=== PATIENT | male | born 1970 | race African-American/Black ===

== ENCOUNTER 2018-02-16 00:43 | Emergency (ER) | payer SELFPAY ==
[2018-02-16] MEDS ORDERED: ONDANSETRON HCL INJ/PF 4 MG/2 ML SDV IV ONE (01:17)
[2018-02-16] MEDS ORDERED: NORMAL SALINE 1000 ML 1,000 ML IV ONE (01:17)
--- NOTE | 2018-02-16 01:17 | ER Document Report ---
ED Flu Like - General Chief Complaint: Nausea/Vomiting Stated Complaint: COLD SYMPTOMS Time Seen by Provider: 02/16/18 00:49 Mode of Arrival: Stretcher Information source: Patient, Relative Notes: She is a 48-year-old male presenting to the emergency department via EMS with his mother complaining of vomiting 2 in the last 24 hours. Patient denies any blood in his vomit. Patient states he has had nausea and vomiting for the last year intermittently. Patient has not seen a doctor for this complaint. Patient denies diarrhea, fever, URI symptoms. patient states last 24 hours he has an increased body aches, lower back pain, headache. Patient denies any trauma or falls. Patient denies any dysuria. Admits to routine marijuana use, smoking cigarettes, EtOH daily. Patient denies any past medical history, medications, has an allergy to seafood. - Related Data Allergies/Adverse Reactions: seafood Allergy (Uncoded 02/16/18 01:28) Past Medical History - General Information source: Patient, Relative - Social History Smoking Status: Current Every Day Smoker Family History: Reviewed & Not Pertinent Review of Systems - Review of Systems Constitutional: See HPI EENT: No symptoms reported Cardiovascular: See HPI Respiratory: See HPI Gastrointestinal: See HPI Genitourinary: See HPI Male Genitourinary: No symptoms reported Musculoskeletal: See HPI Skin: No symptoms reported Hematologic/Lymphatic: No symptoms reported Neurological/Psychological: No symptoms reported Course - Re-evaluation Re-evalutation: Lab results show no sign of leukocytosis. Upon reexam patient states abdominal pain and back pain have resolved. Patient has not vomited since being in the emergency department p.o. challenge will be ordered. Mother in the department requesting medications for patient to go home with due to patient not having insurance. Alcohol cessation discussed with the patient and mother. Due to treatment modalities helping the patient's pain, patient's history, patient's lab work, patient's symptoms most likely due to gastritis. Return precautions given - Laboratory Result Diagrams: 02/16/18 01:50 02/16/18 01:50 Laboratory results interpreted by me: 02/16/18 01:50 Carbon Dioxide 17 L Discharge - Discharge Clinical Impression: Vomiting Qualifiers: Vomiting type: unspecified Vomiting Intractability: unspecified Nausea presence : with nausea Qualified Code(s): R11.2 - Nausea with vomiting, unspecified Gastritis Qualifiers: Gastritis type: unspecified gastritis Chronicity: unspecified Gastritis bleeding: without bleeding Qualified Code(s): K29.70 - Gastritis, unspecified, without bleeding Disposition: HOME, SELF-CARE Instructions: Vomiting ([facility]), Antinausea Medication ([facility]) Additional Instructions: You have been diagnosed with nausea, vomiting, and gastritis. You should refrain from spicy foods, alcohol beverages, peppermint, caffeine. Take medications as prescribed. Return to emergency department should you start vomiting blood, have bloody stools, abdominal pain returns, develop chest pain or shortness of breath. Prescriptions: Famotidine [Pepcid 40 mg Tablet] 40 mg PO BID #60 tablet Ondansetron [Zofran Odt 4 mg Tablet] 1 - 2 tab PO Q4H PRN #15 tab.rapdis PRN Reason: For Nausea/Vomiting Sucralfate [Carafate 1 gm Tablet] 1 gm PO QID #20 tablet Referrals: LOCALMD,NO [NO LOCAL MD] - Follow up as needed
[2018-02-16] MEDS ORDERED: FAMOTIDINE 20 MG TABLET PO ONE (01:22)
[2018-02-16] MEDS ORDERED: SUCRALFATE 1 GM TABLET PO ONE (01:22)
[2018-02-16 02:24] LABS: ALANINE AMINOTRANSFERASE 35 U/L (21-72); ALBUMIN 4.7 g/dL (3.5-5.0); ALKALINE PHOSPHATASE 83 U/L (38-126); ANION GAP 18 (5-19); ASPARTATE AMINO TRANSFERASE 39 U/L (17-59); BILIRUBIN,DIRECT 0.3 mg/dL (0.0-0.4); BILIRUBIN,TOTAL 0.6 mg/dL (0.2-1.3); BLOOD UREA NITROGEN 11 mg/dL (7-20); CALCIUM 9.5 mg/dL (8.4-10.2); CARBON DIOXIDE 17 mmol/L (22-30); CHLORIDE 107 mmol/L (98-107); GLUCOSE 90 mg/dL (75-110); LIPASE 128.9 U/L (23-300); POTASSIUM 4.6 mmol/L (3.6-5.0); SODIUM 142.3 mmol/L (137-145); TOTAL PROTEIN 8.1 g/dL (6.3-8.2)
[2018-02-16 02:37] LABS: ABSOLUTE BASOPHILS # (AUTO) 0.1 10^3/uL (0.0-0.2); ABSOLUTE EOSINOPHILS # (AUTO) 0.2 10^3/uL (0.0-0.6); ABSOLUTE LYMPHOCYTES (AUTO) 2.7 10^3/uL (0.5-4.7); ABSOLUTE MONOCYTES (AUTO) 0.4 10^3/uL (0.1-1.4); ABSOLUTE NEUT (AUTO) 3.3 10^3/uL (1.7-8.2); BASOPHILS % (AUTO) 1.4 % (0-2); EOSINOPHILS % (AUTO) 2.4 % (0-6); HEMOGLOBIN 13.7 g/dL (13.5-17.0); LYMPHOCYTES % (AUTO) 40.9 % (13-45); MEAN CORPUSCULAR HEMOGLOBIN 29.6 pg (27.0-33.4); MEAN CORPUSCULAR HGB CONC 33.4 g/dL (32.0-36.0); MEAN CORPUSCULAR VOLUME 89 fl (80-97); MONOCYTES % (AUTO) 6.2 % (3-13); PLATELET COUNT 232 10^3/uL (150-450); RED BLOOD COUNT 4.63 10^6/uL (4.35-5.55); RED CELL DISTRIBUTION WIDTH 13.5 % (11.5-14.0); SEGMENTED NEUTROPHILS % (AUTO) 49.1 % (42-78); TOTAL CELLS COUNTED % (AUTO) 100 %; WHITE BLOOD COUNT 6.6 10^3/uL (4.0-10.5)
[2018-02-16] MEDS ORDERED: ONDANSETRON ODT 4 MG TAB (6 TAB/ER DISP) PO PRN (03:34)
[2018-02-16 03:35] VITALS: BP 106/69
== END 2018-02-16 03:45 | disposition home or self-care (01) ==
LOC: ER 00:43
DX: K29.70 Gastritis, unspecified, without bleeding (principal); R11.2 Nausea with vomiting, unspecified; M54.5 Low back pain; R51 Headache; F17.210 Nicotine dependence, cigarettes, uncomplicated; Z91.013 Allergy to seafood
CPT/HCPCS: 99284; 96361; 96374; 36415; 83690; 85025; 80053; J2405; J7030

== ENCOUNTER 2018-05-05 09:00 | Emergency (ER) | payer SELFPAY ==
[2018-05-05] MEDS ORDERED: PREDNISONE 20 MG TABLET PO ONE (09:18)
[2018-05-05] MEDS ORDERED: ALBUTEROL SULFATE 0.083% NEB 2.5 MG/3 ML AMPUL NEB ONE ×2 (09:18→11:05)
[2018-05-05] MEDS ORDERED: IPRATROPIUM/ALBUTEROL 0.5-2.5 MG/3 ML AMPUL NEB ONE (09:18)
--- NOTE | 2018-05-05 09:19 | ER Document Report ---
ED Medical Screen (RME) - General Chief Complaint: Shortness Of Breath Stated Complaint: SHORTNESS OF BREATH Time Seen by Provider: 05/05/18 09:16 Notes: 48-year-old male smoker with 3 days shortness of breath got a lot worse last night. Called 911, EMS responded given breathing treatments. He was better and refused transport. He has gotten worse since then. Diffuse wheezes and rhonchi with some retracting. I have greeted and performed a rapid initial assessment of this patient. A comprehensive ED assessment and evaluation of the patient, analysis of test results and completion of the medical decision making process will be conducted by additional ED providers. TRAVEL OUTSIDE OF THE [place] IN LAST 30 DAYS: No - Related Data Allergies/Adverse Reactions: seafood Allergy (Uncoded 02/16/18 01:28) Past Medical History - Social History Chew tobacco use (# tins/day): No Pulmonary Medical History: Reports: Hx Asthma Renal/ Medical History: Denies: Hx Peritoneal Dialysis Physical Exam - Vital signs Vitals: Temp Pulse Resp BP Pulse Ox 99.1 F 100 24 H 178/96 H 95 05/05/18 09:06 05/05/18 09:06 05/05/18 09:06 05/05/18 09:06 05/05/18 09:06 Course - Vital Signs Vital signs: Temp Pulse Resp BP Pulse Ox 99.1 F 100 24 H 178/96 H 95 05/05/18 09:06 05/05/18 09:06 05/05/18 09:06 05/05/18 09:06 05/05/18 09:06
[2018-05-05] MEDS ORDERED: MAGNESIUM SULFATE/D5W 1 GM/100 ML RTUPB IV ONE (09:54)
--- NOTE | 2018-05-05 10:01 | ER Document Report ---
ED General - General Chief Complaint: Shortness Of Breath Stated Complaint: SHORTNESS OF BREATH Time Seen by Provider: 05/05/18 09:16 TRAVEL OUTSIDE OF THE [place] IN LAST 30 DAYS: No - HPI Notes: Patient is a 48-year-old male with a past medical history of asthma who presents to the ED complaining of nasal congestion/discharge, dry nonproductive cough, wheezing over the last 2 days. Patient states that he did call an ambulance yesterday and they gave him nebulizers which improved his symptoms and he refused transport at that time. Patient states that he has continued wheezing so he came to emergency department. He is able to eat and drink without any difficulties. He is urinating normally and having normal bowel movements. Patient states that he has had asthma flareups like this in the past and believes that he may have a cold as well. He has no other concerns or complaints. Denies any headache, fever, sore throat, chest pain, palpitations, syncope, abdominal pain, nausea/vomiting/diarrhea, urinary retention, dysuria, hematuria, or rash. - Related Data Allergies/Adverse Reactions: seafood Allergy (Uncoded 02/16/18 01:28) Past Medical History - Social History Smoking Status: Current Some Day Smoker Chew tobacco use (# tins/day): No Family History: Reviewed & Not Pertinent Patient has suicidal ideation: No Patient has homicidal ideation: No Pulmonary Medical History: Reports: Hx Asthma Renal/ Medical History: Denies: Hx Peritoneal Dialysis Review of Systems - Review of Systems -: Yes All other systems reviewed and negative Physical Exam - Vital signs Vitals: Temp Pulse Resp BP Pulse Ox 99.1 F 100 24 H 178/96 H 95 05/05/18 09:06 05/05/18 09:06 05/05/18 09:06 05/05/18 09:06 05/05/18 09:06 - Notes Notes: PHYSICAL EXAMINATION: GENERAL: Well-appearing, well-nourished and in no acute distress. A&Ox4. Answers questions appropriately. HEAD: Atraumatic, normocephalic. EYES: Pupils equal round and reactive to light, extraocular movements intact, sclera anicteric, conjunctiva are normal. ENT: Nares patent and without discharge. oropharynx clear without exudates. No tonsilar hypertrophy or erythema. Moist mucous membranes. NECK: Normal range of motion, supple without lymphadenopathy LUNGS: wheezing throughout. No obvious retractions, but pt had already received 1 neb tx HEART: Regular rate and rhythm without murmurs, rubs, gallops. ABDOMEN: Soft, nontender, nondistended abdomen. No guarding, no rebound. No masses appreciated. Normal bowel sounds present. No CVA tenderness bilaterally. Musculoskeletal: FROM to passive/active. Strength 5+/5. Verena neg. No asymmetry to LE's. Extremities: No cyanosis, clubbing, or edema b/l. Peripheral pulses 2+. Capillary refill less than 3 seconds. NEUROLOGICAL: Normal speech, normal gait. PSYCH: Normal mood, normal affect. SKIN: Warm, Dry, normal turgor, no rashes or lesions noted. Course - Re-evaluation Re-evalutation: 05/05/18 12:55 Patient is an afebrile, well-hydrated, 48-year-old male who presents to the ED with an acute URI and asthma exacerbation. Vitals are acceptable without any significant tachycardia, tachypnea, or hypoxia. Patient has been monitored on a pulse oximetry at 95% currently on room air with good waveform. Patient is nontoxic-appearing and is tolerating p.o. without difficulty. Patient did receive 2 breathing treatments, prednisone, and magnesium. EKG/Chest x-ray unremarkable. Patient was ambulated on room air and maintained greater than 95% . Patient's lung sounds have greatly improved since arrival. Patient states that he feels much better and is ready to go home. He has reported similar flare-ups in the past of his asthma. No cardiopulmonary medical history otherwise. I did review admission versus discharge with patient and patient would like to be discharged home. Risk/benefit understood. I will give him an inhaler as well as a prescription for prednisone taper. Patient is aware that he may return at any point with worsening symptoms. Recheck with your PCM next week. Return to the ED for any other worsening/concerning symptoms as reviewed. Patient is in agreement. - Vital Signs Vital signs: Temp Pulse Resp BP Pulse Ox 99.1 F 100 15 128/84 H 97 05/05/18 09:06 05/05/18 09:06 05/05/18 12:01 05/05/18 12:00 05/05/18 12:01 Discharge - Discharge Clinical Impression: Acute URI Acute asthma exacerbation Qualifiers: Asthma severity: mild Asthma persistence: intermittent Qualified Code(s): J45.21 - Mild intermittent asthma with (acute) exacerbation Condition: Stable Disposition: HOME, SELF-CARE Instructions: Asthma ([facility]) Additional Instructions: Maintain adequate fluid intake Take meds as directed tylenol/ibuprofen as needed over the counter cold medication as needed for symptoms Inhaler as directed/needed Humidified air may help Wash your hands regularly Wear a mask when coughing F/u: with your PCM in 2-3 days for a recheck Return to the ED with any fever, worsening pain, chest pain, palpitations, syncope, worsening BENITEZ, neck pain/stiffness, shortness of breath, wheezing, drooling, trouble swallowing/breathing, abdominal pain, n/v/d, rash, or worsening/concerning symptoms otherwise. Prescriptions: Prednisone [Deltasone 10 mg Tablet] 10 mg PO DAILY #18 tablet Forms: Elevated Blood Pressure Referrals: [facility] [Provider Group] - Follow up as needed [facility] [Provider Group] - Follow up as needed
[2018-05-05 10:33] LABS: A TYPE INFLUENZA AG NEGATIVE (NEGATIVE); B INFLUENZA AG NEGATIVE (NEGATIVE)
--- NOTE | 2018-05-05 10:40 | RADIOLOGY REPORT (SQ) ---
EXAM DESCRIPTION: CHEST 2 VIEWS COMPLETED DATE/TIME: 05/05/2018 10:29 am REASON FOR STUDY: cough/wheeze COMPARISON: None. EXAM PARAMETERS: NUMBER OF VIEWS: two views TECHNIQUE: Digital Frontal and Lateral radiographic views of the chest acquired. RADIATION DOSE: NA LIMITATIONS: none FINDINGS: LUNGS AND PLEURA: No opacities, masses or pneumothorax. No pleural effusion. MEDIASTINUM AND HILAR STRUCTURES: No masses or contour abnormalities. HEART AND VASCULAR STRUCTURES: Heart normal size. No evidence for failure. BONES: No acute findings. Old rib fracture. HARDWARE: None in the chest. OTHER: No other significant finding. IMPRESSION: NO ACUTE RADIOGRAPHIC FINDING IN THE CHEST. TECHNICAL DOCUMENTATION: JOB ID: [id number] [employer]- All Rights Reserved Reading location - IP/workstation name: [email or web address]
[2018-05-05] MEDS ORDERED: ALBUTEROL SULFATE HFA (90 MCG/PUFF) 8 GM MDI (1 MDI/ER DISP) IH ONE (12:35)
[2018-05-05 14:08] VITALS: BP 158/91
--- NOTE | 2018-05-05 19:16 | EKG REPORT ---
SEVERITY:- ABNORMAL ECG - SINUS RHYTHM LVH WITH SECONDARY REPOLARIZATION ABNORMALITY : Confirmed by: Brittany Vickers MD 05-May-2018 19:15:07
== END 2018-05-05 14:08 | disposition home or self-care (01) ==
LOC: ER 09:00
DX: J06.9 Acute upper respiratory infection, unspecified (principal); J45.21 Mild intermittent asthma with (acute) exacerbation; R06.02 Shortness of breath; R09.81 Nasal congestion; R09.89 Other specified symptoms and signs involving the circulatory and respiratory systems; R05 Cough
CPT/HCPCS: 93005; 94640 ×2; 99285; 96365; 96366; 87804; 71046; 93010; J3475; J7512; J3490; J7620

== ENCOUNTER 2020-02-19 18:04 | Emergency (ER) | payer SELFPAY ==
[2020-02-19 19:20] LABS: ABSOLUTE BASOPHILS # (AUTO) 0.1 10^3/uL (0.0-0.2); ABSOLUTE LYMPHOCYTES (AUTO) 0.8 10^3/uL (0.5-4.7); ABSOLUTE MONOCYTES (AUTO) 0.1 10^3/uL (0.1-1.4); ABSOLUTE NEUT (AUTO) 7.7 10^3/uL (1.7-8.2); BASOPHILS % (AUTO) 1.1 % (0-2); EOSINOPHILS % (AUTO) 0.3 % (0-6); HEMATOCRIT 38.7 % (37.9-51.0); HEMOGLOBIN 13.1 g/dL (13.5-17.0); LYMPHOCYTES % (AUTO) 8.8 % (13-45); MEAN CORPUSCULAR HEMOGLOBIN 29.3 pg (27.0-33.4); MEAN CORPUSCULAR HGB CONC 33.9 g/dL (32.0-36.0); MEAN CORPUSCULAR VOLUME 87 fl (80-97); MONOCYTES % (AUTO) 1.4 % (3-13); PLATELET COUNT 241 10^3/uL (150-450); RED BLOOD COUNT 4.47 10^6/uL (4.35-5.55); RED CELL DISTRIBUTION WIDTH 13.3 % (11.5-14.0); SEGMENTED NEUTROPHILS % (AUTO) 88.4 % (42-78); TOTAL CELLS COUNTED % (AUTO) 100 %; WHITE BLOOD COUNT 8.7 10^3/uL (4.0-10.5)
[2020-02-19 19:25] LABS: ALBUMIN 4.5 g/dL (3.5-5.0); ALKALINE PHOSPHATASE 83 U/L (38-126); ANION GAP 17 (5-19); ASPARTATE AMINO TRANSFERASE 33 U/L (17-59); BILIRUBIN,DIRECT 0.4 mg/dL (0.0-0.4); BILIRUBIN,TOTAL 0.5 mg/dL (0.2-1.3); BLOOD UREA NITROGEN 12 mg/dL (7-20); CALCIUM 8.7 mg/dL (8.4-10.2); CARBON DIOXIDE 18 mmol/L (22-30); CHLORIDE 105 mmol/L (98-107); CREATINE KINASE 159 U/L (55-170); GLUCOSE 101 mg/dL (75-110); POTASSIUM 4.2 mmol/L (3.6-5.0); TOTAL PROTEIN 7.1 g/dL (6.3-8.2)
--- NOTE | 2020-02-19 19:29 | RADIOLOGY REPORT (SQ) ---
EXAM DESCRIPTION: CHEST SINGLE VIEW IMAGES COMPLETED DATE/TIME: 02/19/2020 7:12 pm REASON FOR STUDY: weakness COMPARISON: 05/05/2018 EXAM PARAMETERS: NUMBER OF VIEWS: One view. TECHNIQUE: Single frontal radiographic view of the chest acquired. RADIATION DOSE: NA LIMITATIONS: None. FINDINGS: LUNGS AND PLEURA: No opacities, masses or pneumothorax. No pleural effusion. MEDIASTINUM AND HILAR STRUCTURES: No masses. Contour normal. HEART AND VASCULAR STRUCTURES: Heart normal in size. Normal vasculature. BONES: No acute findings. HARDWARE: None in the chest. OTHER: No other significant finding. IMPRESSION: NO ACUTE RADIOGRAPHIC FINDING IN THE CHEST. TECHNICAL DOCUMENTATION: JOB ID: [id number] [employer]- All Rights Reserved Reading location - IP/workstation name: [email or web address]
[2020-02-19 19:37] LABS: CREATINE KINASE MB 1.21 ng/mL (<4.55)
[2020-02-19 19:41] LABS: TROPONIN I < 0.012 ng/mL
--- NOTE | 2020-02-19 20:28 | ER Document Report ---
ED General - General Chief Complaint: General Weakness Stated Complaint: GENERALIZED WEAKNESS/AMS Time Seen by Provider: 02/19/20 20:06 TRAVEL OUTSIDE OF THE [place] IN LAST 30 DAYS: No - HPI Notes: 50-year-old male presents with generally not feeling well. Patient states I feel bad. He does not really give much more details, he states I am trying to think how to explain it. He states that he has been feeling generally weak for the past 2 weeks. He then does not offer other descriptors. On review of systems he denies headache, chest pain, shortness of breath, abdominal pain, vomiting or diarrhea. He does state that he has had chronic right shoulder pain for the past 2 years after an injury occurred, he states that he did not break it. Per chart there was some concern that he was abusing alcohol and crack, patient denies this. He states that he does smoke weed. He lives at home with his . He denies any known COVID exposures. - Related Data Allergies/Adverse Reactions: seafood Allergy (Uncoded 02/19/20 18:56) Past Medical History - General Information source: Patient - Social History Smoking Status: Current Every Day Smoker Drug Abuse: Marijuana Family History: Reviewed & Not Pertinent Pulmonary Medical History: Reports: Hx Asthma Renal/ Medical History: Denies: Hx Peritoneal Dialysis Review of Systems - Review of Systems Constitutional: denies: Fever EENT: No symptoms reported Cardiovascular: denies: Chest pain Respiratory: denies: Cough, Short of breath Gastrointestinal: denies: Abdominal pain, Diarrhea, Vomiting Genitourinary: denies: Dysuria Musculoskeletal: Joint pain Skin: No symptoms reported Neurological/Psychological: denies: Headaches Physical Exam - Vital signs Vitals: Pulse Ox 98 02/19/20 18:06 - General General appearance: Appears well, Alert In distress: None - HEENT Head: Normocephalic, Atraumatic Extraocular movements intact: Yes Pupils: PERRL Nasal: Other - Nasal congestion Mucous membranes: Moist - Respiratory Chest status: Nontender Breath sounds: Normal - Cardiovascular Rhythm: Regular Heart sounds: Normal auscultation - Abdominal Distension: No distension Tenderness: Nontender - Extremities General upper extremity: Normal ROM General lower extremity: Normal ROM. No: Edema - Neurological Neuro grossly intact: Yes Cognition: Normal Orientation: AAOx4 Cranial nerves: Normal Cerebellar coordination: Normal Motor strength normal: LUE, RUE, LLE, RLE Sensory: Normal - Psychological Associated symptoms: Normal affect - Skin Skin Temperature: Warm Course - Re-evaluation Re-evalutation: 02/19/20 20:51 50-year-old male generally not feeling well for the past 2 weeks, denying chest pain/S OB/abdominal pain. No gross abnormalities on physical exam other than some nasal congestion. A laboratory evaluation has been initiated to find any major source of abnormality that could be attributing to his generalized weakness. He is neurologically intact without any focal deficit. Possible could be related to drug use, he does not appear to be overtly intoxicated at this point. Will give Toradol and fluids. EKG computer read says concern for pericarditis, patient does not have any symptoms suggestive of this, I suspect this is more consistent with early re-pole. 02/19/20 22:44 Laboratory results reviewed. No leukocytosis, no thrombocytopenia. Mild anemia, likely chronic. Electrolytes are within normal limits. Creatinine is within normal limits. No elevation of LFTs. Troponin is negative. Urine does not suggest UTI. Drug screen is negative. Alcohol level is elevated at 219, suspect chronic alcoholism as he did not appear to be intoxicated. 02/19/20 22:47 Updated patient on results. He continues to be well-appearing. He will be calling a ride. Return precautions given, stable at time of discharge. - Vital Signs Vital signs: Temp Pulse Resp BP Pulse Ox 97.6 F 105 H 19 136/78 H 98 02/19/20 18:39 02/19/20 18:39 02/19/20 21:01 02/19/20 21:00 02/19/20 21:01 - Laboratory Result Diagrams: 02/19/20 18:24 02/19/20 18:24 Laboratory results interpreted by me: 02/19/20 02/19/20 02/19/20 18:24 18:24 21:43 Hgb 13.1 L Lymph % (Auto) 8.8 L [place] % (Auto) 1.4 L Seg Neutrophils % 88.4 H Carbon Dioxide 18 L Urine Ketones 20 H - Diagnostic Test Radiology reviewed: Image reviewed, Reports reviewed - EKG Interpretation by Me Additional EKG results interpreted by me: EKG interpreted by me. Normal sinus rhythm, rate 90. Narrow QRS, QTC within normal limits. Evidence of early repolarization. I do not appreciate any MO depression. Discharge - Discharge Clinical Impression: Feeling unwell Condition: Stable Disposition: HOME, SELF-CARE Additional Instructions: Please establish with a primary care doctor. Please limit your consumption of alcohol. Return to the emergency department for any concerning worsening symptoms.
[2020-02-19] MEDS ORDERED: KETOROLAC TROMETHAMINE INJ/PF 30 MG/1 ML SDV IV ONE (20:37)
[2020-02-19] MEDS ORDERED: RINGERS SOLUTION,LACTATED 1,000 ML IV ONE (20:37)
[2020-02-19 22:24] LABS: APPEARANCE,URINE CLEAR; BILIRUBIN,URINE NEGATIVE (NEGATIVE); COLOR,URINE YELLOW; GLUCOSE, URINE NEGATIVE (NEGATIVE); KETONES,URINE 20 mg/dL (NEGATIVE); LEUKOCYTE ESTERASE,URINE NEGATIVE (NEGATIVE); NITRITE,URINE NEGATIVE (NEGATIVE); PROTEIN,URINE NEGATIVE (NEGATIVE); UROBILINOGEN,URINE NEGATIVE mg/dL (<2.0)
[2020-02-19 22:35] LABS: URINE AMPHETAMINES SCREEN NEGATIVE; URINE BARBITURATES SCREEN NEGATIVE; URINE BENZODIAZEPINES SCREEN NEGATIVE; URINE COCAINE SCREEN NEGATIVE; URINE MARIJUANA (THC) SCREEN NEGATIVE; URINE METHADONE SCREEN NEGATIVE; URINE PHENCYCLIDINE SCREEN NEGATIVE
[2020-02-19 23:48] VITALS: BP 128/86
--- NOTE | 2020-02-20 09:35 | EKG REPORT ---
SEVERITY:- ABNORMAL ECG - SINUS RHYTHM ST ELEVATION SUGGESTS PERICARDITIS : Confirmed by: Cooper Reed MD 20-Feb-2020 09:34:32
== END 2020-02-19 23:51 | disposition home or self-care (01) ==
LOC: ER 18:04
DX: R53.1 Weakness (principal); R09.81 Nasal congestion; D64.9 Anemia, unspecified; M25.511 Pain in right shoulder; G89.29 Other chronic pain; F17.200 Nicotine dependence, unspecified, uncomplicated; F12.10 Cannabis abuse, uncomplicated; J45.909 Unspecified asthma, uncomplicated; Z91.013 Allergy to seafood
CPT/HCPCS: 93005; 99285; 96361; 96374; 36415; 82553; 80307 ×2; 82550; 85025; 80053; 81001; 84484; 71045; 93010; J1885; J7120